=== PATIENT | female | born 2000 | race Caucasian/White ===

== ENCOUNTER 2019-05-07 20:09 | Emergency (ER) | payer BC, OTHER ==
[2019-05-07] MEDS ORDERED: FENTANYL CITR 100 MCG/2 ML ONE (22:50)
--- NOTE | 2019-05-07 23:51 | EDPHYS ---
Physician Documentation [facility] Name: Jonelle Hamilton Age: 18 yrs Sex: Female : 2000 Arrival Date: 05/07/2019 Time: 21:06 Bed 28 Private MD: ED Physician Brendon Diamond HPI: 05/07 23:44 This 18 yrs old Female presents to ER via Wheelchair with complaints of Knee jr8 Pain. 23:44 Onset: The symptoms/episode began/occurred acutely, today. The patient has not jr8 experienced similar symptoms in the past. The patient has not recently seen a physician. Stated that she was walking in her room and felt her knee twist. Popped and since then has has pain with decreased ROM . Historical: - Allergies: 21:12 No Known Allergies; ca1 - Home Meds: 21:12 control pills [Active]; ca1 - PMHx: 21:12 None; ca1 - PSHx: 21:12 None; ca1 - Immunization history:: Adult Immunizations up to date. - Coronavirus screen:: The patient has NOT traveled to [place], [place], or [place] in the past 14 days. The patient has NOT had contact with known/suspected case of Coronavirus?. - Social history:: Smoking status: Patient denies any tobacco usage or history of. - Ebola Screening: : Patient negative for fever greater than or equal to 101.5 degrees Fahrenheit, and additional compatible Ebola Virus Disease symptoms Patient denies exposure to infectious person Patient denies travel to an Ebola-affected area in the 21 days before illness onset No symptoms or risks identified at this time. ROS: 23:44 Eyes: Negative for injury, pain, redness, and discharge, ENT: Negative for injury, jr8 pain, and discharge, Neck: Negative for injury, pain, and swelling, Cardiovascular: Negative for chest pain, palpitations, and edema, Respiratory: Negative for shortness of breath, cough, wheezing, and pleuritic chest pain, Abdomen/GI: Negative for abdominal pain, nausea, vomiting, diarrhea, and constipation, Back: Negative for injury and pain, Skin: Negative for injury, rash, and discoloration, Neuro: Negative for headache, weakness, numbness, tingling, and seizure. 23:44 MS/extremity: Positive for decreased range of motion, pain, tenderness, of the right knee. Exam: 23:44 Eyes: Pupils equal round and reactive to light, extra-ocular motions intact. Lids and jr8 lashes normal. Conjunctiva and sclera are non-icteric and not injected. Cornea within normal limits. Periorbital areas with no swelling, redness, or edema. ENT: Nares patent. No nasal discharge, no septal abnormalities noted. Tympanic membranes are normal and external auditory canals are clear. Oropharynx with no redness, swelling, or masses, exudates, or evidence of obstruction, uvula midline. Mucous membranes moist. Neck: Trachea midline, no thyromegaly or masses palpated, and no cervical lymphadenopathy. Supple, full range of motion without nuchal rigidity, or vertebral point tenderness. No Meningismus. Cardiovascular: Regular rate and rhythm with a normal S1 and S2. No gallops, murmurs, or rubs. Normal PMI, no JVD. No pulse deficits. Respiratory: Lungs have equal breath sounds bilaterally, clear to auscultation and percussion. No rales, rhonchi or wheezes noted. No increased work of breathing, no retractions or nasal flaring. Abdomen/GI: Soft, non-tender, with normal bowel sounds. No distension or tympany. No guarding or rebound. No evidence of tenderness throughout. Back: No spinal tenderness. No costovertebral tenderness. Full range of motion. Skin: Warm, dry with normal turgor. Normal color with no rashes, no lesions, and no evidence of cellulitis. Neuro: Awake and alert, GCS 15, oriented to person, place, time, and situation. Cranial nerves II-XII grossly intact. Motor strength 5/5 in all extremities. Sensory grossly intact. Cerebellar exam normal. Normal gait. 23:44 Musculoskeletal/extremity: Extremities: grossly normal except: noted in the right knee: decreased ROM, pain, tenderness, anterior right knee over patella , ROM: Patient had limited ROM to right knee secondary to pain. Able to actively range right knee. Rest of extremities unremarkable , Circulation is intact in all extremities. Pulses: noted to be 2+ in the right posterior tibial artery, right dorsalis pedis artery, left posterior tibial artery and left dorsalis pedis artery, Sensation intact. Vital Signs: 21:12 BP 155 / 95; Pulse 103; Resp 17 S; Temp 98.3(TE); Pulse Ox 97% on R/A; Weight 132.45 kg ca1 (R); Height 5 ft. 3 in. (160.02 cm) (R); Pain 6/10; 21:12 Body Mass Index 51.72 (132.45 kg, 160.02 cm) ca1 Procedures: 23:44 Splinting: Splint applied to right leg using knee immobilizer, applied by nurse. jr8 Examined by me, post splint application: neurovascular intact, 2+ distal pulses palpable, brisk capillary refill noted, Patient tolerated well. Crutch training provided to patient and/or family. Return demonstration given. MDM: 21:19 Patient medically screened. jr8 23:44 Data reviewed: vital signs, nurses notes, radiologic studies, plain films. Data jr8 interpreted: Pulse oximetry: on room air is 97 %. Interpretation: normal. Test interpretation: by ED physician or midlevel provider: plain radiologic studies, No acute fracture noted. No dislocation of knee or patella seen . Counseling: I had a detailed discussion with the patient and/or guardian regarding: the historical points, exam findings, and any diagnostic results supporting the discharge/admit diagnosis, radiology results, the need for outpatient follow up, a orthopedic surgeon, to return to the emergency department if symptoms worsen or persist or if there are any questions or concerns that arise at home. 05/07 22:16 Order name: XRAY Knee RIGHT 3 view jr8 05/07 22:16 Order name: IV; Complete Time: 22:24 jr8 05/08 00:02 Order name: Knee Immobilizer; Complete Time: 00:02 jr8 05/08 00:02 Order name: Crutches; Complete Time: 00:02 jr8 Administered Medications: 22:50 Drug: fentaNYL (PF) 50 mcg Route: IVP; Site: right forearm; ls4 Disposition: 05/08 05:51 Co-signature as Attending Physician, Brendon Diamond MD I agree with the assessment and tw4 plan of care. Disposition: 05/07/19 23:47 Discharged to Home. Impression: Pain in right knee. - Condition is Stable. - Discharge Instructions: Knee Pain. - Prescriptions for Ibuprofen 800 mg Oral Tablet - take 1 tablet by ORAL route every 12 hours As needed take with food; 20 tablet. - Medication Reconciliation Form, Thank You Letter, Antibiotic Education, Prescription Opioid Use form. - Follow up: Kadeem Flower MD; When: 2 - 3 days; Reason: Recheck today's complaints, Continuance of care, Re-evaluation by your physician. - Problem is new. - Symptoms have improved. Signatures: Dispatcher [employer] Aubrie Millan RN RN bb Jesus Mendez PA PA jr8 Brendon Diamond MD MD tw4 Danette Stoll RN RN ls4 Amelia Stone RN RN ca1 Corrections: (The following items were deleted from the chart) 00:46 05/07 23:47 05/07/2019 23:47 Discharged to Home. Impression: Pain in right knee. bb Condition is Stable. Forms are Medication Reconciliation Form, Thank You Letter, Antibiotic Education, Prescription Opioid Use. Follow up: Kadeem Flower; When: 2 - 3 days; Reason: Recheck today's complaints, Continuance of care, Re-evaluation by your physician. Problem is new. Symptoms have improved. jr8
--- NOTE | 2019-05-07 23:51 | ER ---
Nurse's Notes [facility] Name: Jonelle Hamilton Age: 18 yrs Sex: Female : 2000 Arrival Date: 05/07/2019 Time: 21:06 Bed 28 Private MD: Diagnosis: Pain in right knee Presentation: 05/07 21:09 Presenting complaint: Patient states: R knee pain started about an hour ago. Transition ca1 of care: patient was not received from another setting of care. Onset of symptoms was May 07, 2019. Risk Assessment: Do you want to hurt yourself or someone else? Patient reports no desire to harm self or others. Initial Sepsis Screen: Does the patient meet any 2 criteria? No. Patient's initial sepsis screen is negative. Does the patient have a suspected source of infection? No. Patient's initial sepsis screen is negative. Care prior to arrival: None. 21:09 Method Of Arrival: Wheelchair ca1 21:09 Acuity: MARIAH 4 ca1 Historical: - Allergies: 21:12 No Known Allergies; ca1 - Home Meds: 21:12 control pills [Active]; ca1 - PMHx: 21:12 None; ca1 - PSHx: 21:12 None; ca1 - Immunization history:: Adult Immunizations up to date. - Coronavirus screen:: The patient has NOT traveled to [place], [place], or [place] in the past 14 days. The patient has NOT had contact with known/suspected case of Coronavirus?. - Social history:: Smoking status: Patient denies any tobacco usage or history of. - Ebola Screening: : Patient negative for fever greater than or equal to 101.5 degrees Fahrenheit, and additional compatible Ebola Virus Disease symptoms Patient denies exposure to infectious person Patient denies travel to an Ebola-affected area in the 21 days before illness onset No symptoms or risks identified at this time. Vital Signs: 21:12 BP 155 / 95; Pulse 103; Resp 17 S; Temp 98.3(TE); Pulse Ox 97% on R/A; Weight 132.45 kg ca1 (R); Height 5 ft. 3 in. (160.02 cm) (R); Pain 6/10; 21:12 Body Mass Index 51.72 (132.45 kg, 160.02 cm) ca1 ED Course: 21:06 Patient arrived in ED. ag3 21:11 Triage completed. ca1 21:12 Arm band placed on right wrist. ca1 21:18 Jesus Mendez PA is PHCP. jr8 21:18 Brendon Diamond MD is Attending Physician. jr8 21:45 Danette Stoll, RN is Primary Nurse. ls4 22:31 Inserted saline lock: 22 gauge in right antecubital area, using aseptic technique. lt1 22:48 XRAY Knee RIGHT 3 view In Process Unspecified. EDMS 23:47 Kadeem Flower MD is Referral Physician. jr8 Administered Medications: 22:50 Drug: fentaNYL (PF) 50 mcg Route: IVP; Site: right forearm; ls4 Outcome: 23:47 Discharge ordered by . jr8 05/08 00:46 Patient left the ED. bb Signatures: Dispatcher [employer] EDMS Aubrie Pascual, AMBERLY RN bb Jesus Mendez PA PA jr8 Carol Toledo ag3 Danette Stoll, AMBERLY RN ls4 Amelia Stone RN RN ca1 Tasha Wright lt1
--- NOTE | 2019-05-08 08:09 | RAD REPORT ---
EXAM DESCRIPTION: RAD - Knee Right 3 View - 05/07/2019 10:48 pm CLINICAL HISTORY: Right knee pain FINDINGS: No fracture or dislocation is seen. No bone or joint abnormality is seen. Edema within the subcutaneous tissues. If the knee pain persists followup x-ray in 4 weeks would be recommended for re-evaluation
[2019-05-08 12:49] VITALS: BP 155/95; TEMP 98.3; O2SAT 97
== END 2019-05-08 00:46 | disposition home or self-care (01) ==
LOC: ER 20:09
DX: M25.561 Pain in right knee (principal)
CPT/HCPCS: 73562; 96374; 99283; J3010